=== PATIENT | female | born 1945 | race Caucasian/White ===

== ENCOUNTER 2017-06-20 13:17 | Day surgery (SDC) | payer MEDICARE ==
[~2017-06-20 13:17] MED LIST: CLOP75 PO; DARV PO; DILT120C9 PO; IRBE1TAB37 PO
[2017-06-20] MEDS ORDERED: CELE20TA PO (13:41)
[2017-06-20] MEDS ORDERED: ASPI-516 CHEW (13:41)
[2017-06-20] MEDS ORDERED: LEVO88TA2 PO (13:41)
[2017-06-20 13:42] VITALS: BP 149/92; PULSE 83; RESP 20; TEMP 97.9; O2SAT 96
[2017-06-20 15:45] VITALS: BP 138/75; PULSE 75; RESP 20; TEMP 98; O2SAT 97
--- NOTE | 2017-06-20 16:05 | RADRPT ---
EXAM DATE/TIME: 06/20/2017 15:52 [place] COMPARISON: No previous studies available for comparison. INDICATIONS : Patient with hx of kelly cyst right knee. Has had cyst drained. Right knee pain and swellling. MEDICAL HISTORY : 1. History of right kelly cyst 2. Asthma SURGICAL HISTORY : 1. Appendectomy 2. right knee drained ENCOUNTER: Initial ACUITY: 1 month PAIN SCORE: 0/10 FLUORO TIME: 1.1 minutes IMAGE SERIES: DEVICE(S): 18 gauge needle was placed into the right knee joint. FLUID: Total volume of5 cc of clear red fluid was removed. Fluid specimen was submitted to the lab for evaluation. PROCEDURE : 1. Fluoroscopically guided right knee aspiration. The risks, benefits and alternatives to the procedure were explained and verbal and written consent w as obtained. The site was prepped in sterile fashion. Full sterile technique was used, including ca p, mask, sterile gloves and gown and a large sterile sheet. Hand hygiene and 2% chlorhexidine and/or betadine/alcohol prep was utilized per protocol for cutaneous antisepsis. The skin and subcutaneous tissues were infiltrated with local anesthetic solution. The joint was punctured from a lateral approach and 5 cc of fluid was removed without difficulty The patient tolerated the procedure well and there were no complications. CONCLUSION: Uncomplicated aspiration as above. Denton Person MD on June 20, 2017 at 16:03 Board Certified Radiologist. This report was verified electronically.
== END 2017-06-20 16:00 | disposition home or self-care (01) ==
LOC: HROP 13:17 → HRIP 13:18 → HROP 16:00
PROVIDERS: ATTEND Specialist
DX: M71.21 Synovial cyst of popliteal space [Baker], right knee (principal); J45.909 Unspecified asthma, uncomplicated
CPT/HCPCS: 20610; 77002; 87015; 87070; 87116; 87205; 87206; 87220